=== PATIENT | male | born 1995 | race Caucasian/White ===

== ENCOUNTER → 2023-01-12 | Outpatient (CLI) | payer OTHER | LOC: COL.PUL 07:42 | DX: R06.02 Shortness of breath (principal) ==

== ENCOUNTER 2023-08-29 10:45 | Day surgery (SDC) | payer OTHER ==
[~2023-08-29] VITALS: Ht 175.3 cm; Wt 99.7 kg
[2023-08-29] VITALS (7 sets, daily range): BP systolic 124–130; BP diastolic 64–74; PULSE 67–77; TEMP 97.8–98.7
[~2023-08-29 10:45] MED LIST: LR 1,000 ML IV SCH; Lidocaine PF 2% (20 MG/ML) 5 ML VIAL ONE; NS 10 ML IV ONE; Rocuronium 50 MG/5 ML Multi-Dose VIAL ONE
[2023-08-29] MEDS ORDERED: Rocuronium 50 MG/5 ML Multi-Dose VIAL ONE (10:53)
[2023-08-29] MEDS ORDERED: Ondansetron 4 MG/2 ML VIAL IV PRN ×2 (11:15→15:45)
[2023-08-29] MEDS ORDERED: fentaNYL 50 MCG/ML 1 ML SYRINGE/VIAL [PACU/SDC ONLY] IV PRN (11:15)
[2023-08-29] MEDS ORDERED: HYDROmorphone 1 MG/1 ML SYRINGE [PACU/SDC ONLY] IV PRN (11:15)
--- NOTE | 2023-08-29 11:29 | NUR ---
1049 Patient ambulatory to bay with steady gait, breathing even and unlabored. Pt is alert and oriented, accompanied by his life partner, Aye. Consents reviewed and signed by the patient. IV established. LR infusion via gravity at [facility]. Call light in reach. Warm blanket offerred and declined.
[2023-08-29] MEDS ORDERED: NORCO 325 MG-51 TAB PO (13:03)
[2023-08-29] MEDS ORDERED: MOTRIN 600600 MG/TAB PO (13:03)
[2023-08-29] MEDS ORDERED: Midazolam 2 MG/2 ML VIAL ONE (13:19)
[2023-08-29] MEDS ORDERED: fentaNYL 50 MCG/ML 2 ML VIAL ONE (13:28)
[2023-08-29] MEDS ORDERED: Topical Skin Adhesive 1 EACH (1 ML) TOP ONE (13:50)
[2023-08-29] MEDS ORDERED: Ibuprofen 600 MG TAB PO PRN (15:45)
[2023-08-29] MEDS ORDERED: Morphine 4 MG/ML VIAL IV PRN (15:45)
[2023-08-29] MEDS ORDERED: Acetaminophen 325 MG TAB PO PRN (15:45)
--- NOTE | 2023-08-29 16:00 | NUR ---
PATIENT RETURNED TO ROOM 2 VIA CART, ALERT AND ORIENTED X3. HE IS CALM AND STATES PAIN IS TOLERABLE TO ABDOMEN, RATING 2/10 DESCRIBED ACHING. DENIES INTERVENTIONS. DENIES NAUSEA AND SHORTNESS OF BREATH. BREATHING REGULAR AND UNLABORED ON OXYGEN VIA NASAL CANNULA. ONCE OXYGEN REMOVED, PATIENT OXYGEN SATURATION 96% ON ROOM AIR. ENCOURAGED PATIENT TO DEEP BREATHE. SKIN WARM AND DRY. NURSE HANDOFF COMPLETED IN ROOM WITH INSPECTION OF SURGICAL SITES. 3 ABDOMINAL SURGICAL INCISIONS WITH VISIBLE SKIN GLUE CLOSURE. ALL 3 SURGICAL SITES CLEAN AND DRY WITH SKIN GLUE INTACT. PATIENT HAS NO COMPLAINTS AND HAD APPLE JUICE, SALTINES AND CHOCOLATE PUDDING. FOOD AND DRINK TOLERATED WELL, NO DYSPHAGIA. CALL LIGHT IN REACH. LIFE PARTNER SRINIVAS PRESENT IN ROOM.
--- NOTE | 2023-08-29 16:56 | NUR ---
PATIENT REPORTED INCREASING ABDOMINAL PAIN AND REQUESTED PAIN MEDICATION. DISCUSSED PAIN MANAGEMENT OPTIONS WITH PATIENT. SEE EMAR FOR MEDICATION GIVEN. PATIENT IS TOLERATING FOOD AND DRINK, NO NAUSEA.
--- NOTE | 2023-08-29 17:25 | NUR ---
1716: PATIENT AMBULATED TO RESTROOM WITH STEADY GAIT AND VOIDED WITHOUT DIFFICULTY. 1718: PATIENT AMBULATED IN HALLWAY WITH STEADY GAIT. 1722: DISCHARGE TEACHING COMPLETED WITH PRINTED EDUCATION AND INSTRUCTIONS SENT HOME WITH PATIENT. FOLLOW UP APPOINTMENT DATE, TIME AND LOCATION COMMUNICATED TO PATIENT. PATIENT VERBALIZED UNDERSTANDING. 1723: PATIENT STATES PAIN IS TOLERABLE TO ABDOMEN, DENIES ADDITIONAL INTERVENTIONS. ALL 3 ABDOMINAL INCISIONS CLEAN AND DRY WITH SKIN GLUE INTACT. IV REMOVED. GAUZE AND COBAN PLACED OVER SITE. 1725: PATIENT DISCHARGED HOME WITH [facility]SPORT.
== END 2023-08-29 17:25 | disposition home or self-care (01) ==
LOC: SDCO 10:45
DX: K42.9 Umbilical hernia without obstruction or gangrene (principal); K40.90 Unilateral inguinal hernia, without obstruction or gangrene, not specified as recurrent; G47.33 Obstructive sleep apnea (adult) (pediatric); Z87.891 Personal history of nicotine dependence
CPT/HCPCS: C1781; J0690; J2250; J2704; J3010; J7120